=== PATIENT | male | born 1960 | race Caucasian/White ===

== ENCOUNTER 2016-12-15 21:47 | Emergency (ER) | payer OTHER ==
[~2016-12-15] VITALS: Ht 177.8 cm; Wt 82.1 kg
[~2016-12-15 21:47] MED LIST: ABILIFY10 MG PO; ABILIFY20 MG PO; ADVIL,NUPRIN,M200 MG PO; BACTRIM,SEPT1 TABLET PO; CLARITIN10 M3 PO; CLARITIN10 MG PO; CLONAZEPAM1 MG PO; COLACE100 MG PO; DEBROX15 ML BOTH EARS; DEPAKOTE250 MG; DEPAKOTE250 MG PO; DEPAKOTE500 MG PO; DIVALPROEX SOD500 MG PO; FLONASE16 G1 BOTH NARES; GEMFIBROZIL600 MG PO; GUAIFENESIN DM236 ML PO; KEPPRA250 MG PO; KLONOPIN1 MG PO; LACTINEX,FLO1 PACKET PO; LEXAPRO20 MG PO; LOFIBRA,TRIGLI160 MG PO; Levaquin PO; MILK OF MAGN PO; MUCINEX600 MG PO; MULTI-DAY VITA1 EACH; PERIDEX1 ML MM; PRILOSEC20 MG PO; Q-TUSSIN DM SY240 ML PO; RISPERDAL2 MG PO; RISPERDAL4 MG PO; Robitussin DM PO; SEBEX SHAMPOO118 ML TP; SIMVASTATIN40 MG PO; SUDAFED30 MG PO; TEGRETOL-XR,CA200 MG PO; TEGRETOL-XR,CA400 MG PO; TERBINAFINE HC250 MG PO; THERAGRAN M PO; TINACTIN150 GM TP; TRILIPIX135 MG PO; TRIPLE ANTIBIOT15 GM TP; TYLENOL REGULA325 MG PO; Tylenol Regular Stre PO; VALIUM10 MG PO; ZOCOR40 MG PO
[2016-12-15 23:17] LABS: EOSINOPHIL (%) 0.4 % (0-5); EOSINOPHIL COUNT 0.1 K/uL (0-0.3); HEMATOCRIT 37.3 % (38.0-50.0); IMMATURE GRANULOCYTE (%) 0.4 % (0.0-0.7); IMMATURE GRANULOCYTE COUNT 0.1 K/uL; INSTRUMENT ABS NEUTROPHIL CT 11.8 K/uL; LYMPHOCYTE COUNT 1.1 K/uL (1.0-2.8); MCH 29.9 PG (29.0-34.0); MCHC 33.2 G/DL (30.0-36.0); MCV 89.9 FL (86-99); MEAN PLAT.VOLUME 11.2 uM^3 (9.0-12.4); MONOCYTE (%) 5.7 % (3-12); MONOCYTE COUNT 0.8 K/uL (0-0.8); NEUTROPHIL (%) 85.6 % (45-76); NEUTROPHIL COUNT 11.8 K/uL (1.8-6.4); PLATELET COUNT 271 K/uL (156-360); RBC DIS.WIDTH-CV 12.6 % (11.8-14.6); RBC DIS.WIDTH-SD 41.4 % (39-53); RED BLOOD COUNT 4.15 M/uL (4.00-5.50); WHITE BLOOD COUNT 13.8 K/uL (4.1-10.2)
[2016-12-15 23:28] LABS: CHLORIDE 100 mEq/L (99-109); POTASSIUM 3.6 mEq/L (3.7-5.4); SODIUM 135 mEq/L (136-147)
[2016-12-15 23:30] LABS: GLUCOSE 123 mg/dL (70-99)
[2016-12-15 23:31] LABS: ANION GAP 9 MEQ/L (2-14)
[2016-12-15 23:32] LABS: TOTAL BILIRUBIN 0.3 mg/dL (0.0-1.0)
[2016-12-15 23:34] LABS: ALKALINE PHOSPHATASE 40 IU/L (3-129); GFR ESTIMATE (CALCULATED) > 59 mL/min/
[2016-12-15 23:35] LABS: UREA NITROGEN (BUN) 14 mg/dL (9-23)
[2016-12-15 23:38] LABS: TROP-I INTERPRETATION NEGATIVE; TROPONIN-I < 0.01 ng/mL (0.0-0.30)
[2016-12-15 23:39] LABS: CREATINE KINASE 66 IU/L (1-294); TOTAL CK 66 IU/L (1-294)
[2016-12-15 23:46] LABS: CK-MB 0.8 ng/mL (0.0-4.9)
[2016-12-16] MEDS ORDERED: KEPPRA500 MG PO (00:31)
[2016-12-16] MEDS ORDERED: AUGMENTIN875 MG PO (00:31)
[2016-12-16 01:02] VITALS: BP 127/100
== END 2016-12-16 01:05 | disposition home or self-care (01) ==
LOC: EME 21:47
PROVIDERS: Emergency Medicine
DX: G40.909 Epilepsy, unspecified, not intractable, without status epilepticus (principal); E78.5 Hyperlipidemia, unspecified
CPT/HCPCS: 70450; 71010; 80053; 80156; 82550; 82553; 84484; 85025; 93005; 99281; 99284

== ENCOUNTER 2017-10-24 20:38 | Emergency (ER) | payer OTHER ==
[~2017-10-24] VITALS: Ht 165.1 cm; Wt 80.8 kg
[~2017-10-24 20:38] MED LIST changes: +AUGMENTIN875 MG PO; +BUSPAR10 MG PO; +DIAZEPAM10 MG PO; +KEPPRA500 MG PO; +MIRALAX119 GM PO; -MULTI-DAY VITA1 EACH; +SALINE NOSE SPR45 M1 BOTH NARES; +SUPER MULTIVIT1 EACH PO
[2017-10-25 00:12] VITALS: BP 137/94
== END 2017-10-25 00:12 | disposition home or self-care (01) ==
LOC: EME 20:38
PROC: 09QKXZZ Repair Nasal Mucosa and Soft Tissue, External Approach (ICD-10-PCS; principal; 2017-10-24)
DX: S01.21XA Laceration without foreign body of nose, initial encounter (principal); W01.198A Fall on same level from slipping, tripping and stumbling with subsequent striking against other object, initial encounter
CPT/HCPCS: 70150